=== PATIENT | male | born 1935 | race Caucasian/White ===

== ENCOUNTER → 2018-06-14 | Outpatient (CLI) | payer MEDICARE | LOC: M SMT 09:34 | DX: J84.89 Other specified interstitial pulmonary diseases (principal) | CPT/HCPCS: 71046 ==

== ENCOUNTER → 2018-06-28 | Outpatient (CLI) | payer MEDICARE ==
[2018-06-28 11:14] LABS: ALBUMIN 3.9 GM/DL (3.2-5.2); ALBUMIN/GLOBULIN RATIO 1.22 (1.00-1.93); ALKALINE PHOSPHATASE 38 U/L (45-117); ALT/SGPT 55 U/L (12-78); ANION GAP 7 MEQ/L (8-16); AST/SGOT 35 U/L (7-37); BILIRUBIN,TOTAL 0.7 MG/DL (0.2-1.0); BLOOD UREA NITROGEN 27 MG/DL (7-18); CALCIUM LEVEL 9.2 MG/DL (8.8-10.2); CARBON DIOXIDE LEVEL 30 MEQ/L (21-32); CHLORIDE LEVEL 101 MEQ/L (98-107); CHOLESTEROL LEVEL 124 MG/DL (<200); CHOLESTEROL RISK RATIO 2.755 (<5); CREATININE FOR GFR 1.07 MG/DL (0.70-1.30); GLOMERULAR FILTRATION RATE > 60.0 (>35); GLUCOSE, FASTING 114 MG/DL (70-100); HDL CHOLESTEROL 45 MG/DL (>40); LDL CHOLESTEROL 53.4 MG/DL (<100); MAGNESIUM LEVEL 2.4 MG/DL (1.8-2.4); NON-HDL-C 79 MG/DL; SODIUM LEVEL 138 MEQ/L (136-145); TOTAL PROTEIN 7.1 GM/DL (6.4-8.2); TRIGLYCERIDES LEVEL 128 MG/DL (<150)
== END ==
LOC: M SMT 09:03
DX: I11.9 Hypertensive heart disease without heart failure (principal); R60.0 Localized edema; R94.31 Abnormal electrocardiogram [ECG] [EKG]; Z68.41 Body mass index [BMI] 40.0-44.9, adult
CPT/HCPCS: 83735

== ENCOUNTER → 2018-08-15 | Outpatient (REF) | payer MEDICARE | LOC: M LAB REF 21:51 | DX: R19.7 Diarrhea, unspecified (principal) | CPT/HCPCS: 87507 ==

== ENCOUNTER → 2018-08-26 | Outpatient (CLI) | payer MEDICARE ==
[2018-08-26 14:12] LABS: EOS # 0.2 10^3/uL (0.0-0.50); EOS % 3.2 % (0.0-3.0); HEMATOCRIT 36.9 % (42.0-52.0); HEMOGLOBIN 12.8 g/dl (13.5-17.5); IMMATURE GRANULOCYTE % 0.2 % (0-3.0); LYMPH % 22.4 % (24.0-44.0); MEAN CORPUSCULAR HEMOGLOBIN 31.6 pg (27.0-33.0); MEAN CORPUSCULAR HGB CONC 34.7 g/dl (32.0-36.5); MEAN CORPUSCULAR VOLUME 91.1 fl (80.0-96.0); MONO # 0.7 10^3/uL (0.0-0.8); MONO % 15.7 % (0.0-5.0); NEUTROPHILS # 2.7 10^3/uL (1.8-7.7); NEUTROPHILS % 58.5 % (36.0-66.0); PLATELET COUNT, AUTOMATED 270 10^3/uL (150-450); RED BLOOD COUNT 4.05 10^6/uL (4.30-6.10); WHITE BLOOD COUNT 4.7 10^3/uL (4.0-10.0)
[2018-08-26 14:47] LABS: ALBUMIN 3.2 GM/DL (3.2-5.2); ALBUMIN/GLOBULIN RATIO 1.03 (1.00-1.93); ALKALINE PHOSPHATASE 41 U/L (45-117); ALT/SGPT 44 U/L (12-78); ANION GAP 10 MEQ/L (8-16); AST/SGOT 38 U/L (7-37); BLOOD UREA NITROGEN 16 MG/DL (7-18); CALCIUM LEVEL 8.4 MG/DL (8.8-10.2); CARBON DIOXIDE LEVEL 29 MEQ/L (21-32); CHLORIDE LEVEL 101 MEQ/L (98-107); CREATININE FOR GFR 1.03 MG/DL (0.70-1.30); GLOMERULAR FILTRATION RATE > 60.0 (>35); GLUCOSE, FASTING 95 MG/DL (70-100); POTASSIUM SERUM 2.3 MEQ/L (3.5-5.1); SODIUM LEVEL 140 MEQ/L (136-145); TOTAL PROTEIN 6.3 GM/DL (6.4-8.2)
[2018-08-28 00:06] LABS: DEAMIDATED GLIADIN ABS, IgA 2 units (0-19); DEAMIDATED GLIADIN ABS, IgG 2 units (0-19); ENDOMYSIAL ANTIBODY IgA Negative (Negative); IMMUNOGLOBULIN A 147 mg/dL (61-437); t-TRANSGLUTAMINASE(tTG) IgA <2 U/mL (0-3); t-TRANSGLUTAMINASE(tTG) IgG <2 U/mL (0-5)
== END ==
LOC: M SMT 09:33
DX: R19.7 Diarrhea, unspecified (principal)
CPT/HCPCS: 84443

== ENCOUNTER → 2018-09-08 | Outpatient (CLI) | payer MEDICARE ==
[2018-09-08 13:54] LABS: ALBUMIN 3.6 GM/DL (3.2-5.2); ANION GAP 8 MEQ/L (8-16); BLOOD UREA NITROGEN 17 MG/DL (7-18); CARBON DIOXIDE LEVEL 25 MEQ/L (21-32); CHLORIDE LEVEL 107 MEQ/L (98-107); CREATININE FOR GFR 0.97 MG/DL (0.70-1.30); GLOMERULAR FILTRATION RATE > 60.0 (>35); GLUCOSE, FASTING 77 MG/DL (70-100); MAGNESIUM LEVEL 1.7 MG/DL (1.8-2.4); PHOSPHORUS LEVEL 2.5 MG/DL (2.5-4.9); POTASSIUM SERUM 4.5 MEQ/L (3.5-5.1); SODIUM LEVEL 140 MEQ/L (136-145)
== END ==
LOC: M SMT 09:43
DX: E87.6 Hypokalemia (principal)

== ENCOUNTER → 2018-09-08 | Outpatient (CLI) | payer MEDICARE | LOC: M SMT 09:48 | DX: J44.9 Chronic obstructive pulmonary disease, unspecified (principal); E87.6 Hypokalemia | CPT/HCPCS: 83735 ==

== ENCOUNTER → 2018-10-20 | Outpatient (CLI) | payer MEDICARE ==
[2018-10-20 18:25] LABS: ALBUMIN 3.5 GM/DL (3.2-5.2); ANION GAP 7 MEQ/L (8-16); BLOOD UREA NITROGEN 19 MG/DL (7-18); CARBON DIOXIDE LEVEL 28 MEQ/L (21-32); CHLORIDE LEVEL 104 MEQ/L (98-107); CREATININE FOR GFR 0.81 MG/DL (0.70-1.30); GLOMERULAR FILTRATION RATE > 60.0 (>35); GLUCOSE, FASTING 87 MG/DL (70-100); MAGNESIUM LEVEL 2.1 MG/DL (1.8-2.4); PHOSPHORUS LEVEL 3.6 MG/DL (2.5-4.9); POTASSIUM SERUM 4.5 MEQ/L (3.5-5.1); SODIUM LEVEL 139 MEQ/L (136-145)
== END ==
LOC: M SMT 15:18
DX: E87.6 Hypokalemia (principal); R94.31 Abnormal electrocardiogram [ECG] [EKG]; I11.9 Hypertensive heart disease without heart failure; E83.42 Hypomagnesemia
CPT/HCPCS: 83735

== ENCOUNTER → 2019-05-23 | Outpatient (CLI) | payer MEDICARE ==
[2019-05-23 13:25] LABS: HEMATOCRIT 39.1 % (42.0-52.0); HEMOGLOBIN 13.1 g/dl (13.5-17.5); MEAN CORPUSCULAR HEMOGLOBIN 32.1 pg (27.0-33.0); MEAN CORPUSCULAR HGB CONC 33.5 g/dl (32.0-36.5); MEAN CORPUSCULAR VOLUME 95.8 fl (80.0-96.0); PLATELET COUNT, AUTOMATED 209 10^3/uL (150-450); RED BLOOD COUNT 4.08 10^6/uL (4.30-6.10); WHITE BLOOD COUNT 5.7 10^3/uL (4.0-10.0)
[2019-05-23 13:39] LABS: ALBUMIN 3.6 GM/DL (3.2-5.2); ALT/SGPT 67 U/L (12-78); BILIRUBIN,TOTAL 0.5 MG/DL (0.2-1.0); BLOOD UREA NITROGEN 21 MG/DL (7-18); CALCIUM LEVEL 8.9 MG/DL (8.8-10.2); CARBON DIOXIDE LEVEL 27 MEQ/L (21-32); CHLORIDE LEVEL 107 MEQ/L (98-107); CREATININE FOR GFR 0.91 MG/DL (0.70-1.30); GLOMERULAR FILTRATION RATE > 60.0 (>35); GLUCOSE, FASTING 93 MG/DL (70-100); POTASSIUM SERUM 3.9 MEQ/L (3.5-5.1); SODIUM LEVEL 139 MEQ/L (136-145); TOTAL PROTEIN 6.7 GM/DL (6.4-8.2)
== END ==
LOC: M SMT 08:39
PROVIDERS: ATTEND Internal Medicine
DX: Z51.81 Encounter for therapeutic drug level monitoring (principal); Z79.899 Other long term (current) drug therapy; I10 Essential (primary) hypertension; E78.00 Pure hypercholesterolemia, unspecified

== ENCOUNTER → 2019-05-23 | Outpatient (REF) | payer MEDICARE ==
[2019-05-23 15:03] LABS: CLOSTRIDIUM DIFFICILE PCR NEGATIVE (NEGATIVE)
== END ==
LOC: M LAB REF 12:58
DX: Z79.899 Other long term (current) drug therapy (principal); R19.7 Diarrhea, unspecified; I10 Essential (primary) hypertension

== ENCOUNTER → 2020-09-11 | Outpatient (CLI) | payer MEDICARE ==
[2020-09-11 13:55] LABS: HEMATOCRIT 41.7 % (42.0-52.0); HEMOGLOBIN 13.5 g/dl (13.5-17.5); MEAN CORPUSCULAR HGB CONC 32.4 g/dl (32.0-36.5); MEAN CORPUSCULAR VOLUME 95.9 fl (80.0-96.0); PLATELET COUNT, AUTOMATED 197 10^3/uL (150-450); RED BLOOD COUNT 4.35 10^6/uL (4.30-6.10); WHITE BLOOD COUNT 6.5 10^3/uL (4.0-10.0)
[2020-09-11 14:02] LABS: ALBUMIN 3.8 GM/DL (3.2-5.2); ALT/SGPT 40 U/L (12-78); BILIRUBIN,TOTAL 0.6 MG/DL (0.2-1.0); BLOOD UREA NITROGEN 21 MG/DL (7-18); CALCIUM LEVEL 9.4 MG/DL (8.8-10.2); CARBON DIOXIDE LEVEL 27 MEQ/L (21-32); CHLORIDE LEVEL 106 MEQ/L (98-107); CHOLESTEROL LEVEL 144 MG/DL (<200); CREATININE FOR GFR 0.92 MG/DL (0.70-1.30); GLOMERULAR FILTRATION RATE > 60.0 (>35); GLUCOSE, FASTING 104 MG/DL (70-100); HDL CHOLESTEROL 50 MG/DL (>40); LDL CHOLESTEROL 79 MG/DL (<100); NON-HDL-C 94 MG/DL; POTASSIUM SERUM 4.3 MEQ/L (3.5-5.1); SODIUM LEVEL 137 MEQ/L (136-145); TOTAL PROTEIN 6.8 GM/DL (6.4-8.2); TRIGLYCERIDES LEVEL 77 MG/DL (<150)
[2020-09-11 14:30] LABS: HEMOGLOBIN A1c 5.6 %
== END ==
LOC: M PLALAB 10:53
PROVIDERS: ATTEND Internal Medicine
DX: E66.9 Obesity, unspecified (principal); Z79.899 Other long term (current) drug therapy

== ENCOUNTER → 2021-02-06 | Outpatient (CLI) | payer SELFPAY | LOC: M LABSMTC 11:05 | PROVIDERS: ATTEND Pediatrics | DX: Z11.52 Encounter for screening for COVID-19 (principal) ==

== ENCOUNTER 2021-09-09 20:03 | Observation (INO) | payer MEDICARE ==
[~2021-09-09] VITALS: Ht 170.2 cm; Wt 105.7 kg
[2021-09-09] MEDS ORDERED: LIDOCAINE W/EPINEPHRINE 1% 20ML VIAL SC ONE (21:10)
--- NOTE | 2021-09-09 21:17 | REPVR ---
PROCEDURE INFORMATION: Exam: CT Head Without Contrast Exam date and time: 09/09/2021 8:37 PM Age: 85 years old Clinical indication: Injury or trauma; Fall; Blunt trauma (contusions or hematomas); Additional info: Fall, head injury TECHNIQUE: Imaging protocol: Computed tomography of the head without contrast. Radiation optimization: All CT scans at this facility use at least one of these dose optimization techniques: automated exposure control; mA and/or kV adjustment per patient size (includes targeted exams where dose is matched to clinical indication); or iterative reconstruction. COMPARISON: No relevant prior studies available. FINDINGS: Brain: There is moderate age related parenchymal volume loss. White matter changes are demonstrated in the subcortical, centrum semiovale and periventricular white matter consistent with chronic age related small vessel ischemic changes. There is mild diffuse cerebellar atrophy. Cerebral ventricles: The degree of ventricular dilatation is normal for age and/or degree of atrophy present. Paranasal sinuses: Visualized sinuses are unremarkable. No fluid levels. Mastoid air cells: Visualized mastoid air cells are well aerated. Bones/joints: Unremarkable. No acute fracture. Soft tissues: Large right parietal soft tissue hematoma. IMPRESSION: 1. Large right parietal soft tissue hematoma. No skull fracture. 2. There is moderate age related parenchymal volume loss. White matter changes are demonstrated in the subcortical, centrum semiovale and periventricular white matter consistent with chronic age related small vessel ischemic changes. 3. The degree of ventricular dilatation is normal for age and/or degree of atrophy present. 4. There is mild diffuse cerebellar atrophy. 5. No acute intracranial findings. Electronically signed by: Stuart Morales On 09/09/2021 21:16:32 PM
[2021-09-09 21:21] LABS: BASO % 0.2 % (0.0-1.0); EOS # 0.1 10^3/uL (0.0-0.5); EOS % 1.1 % (0.0-3.0); HEMOGLOBIN 12.9 g/dl (13.5-17.5); LYMPH % 11.1 % (24.0-44.0); MEAN CORPUSCULAR HEMOGLOBIN 32.1 pg (27.0-33.0); MEAN CORPUSCULAR HGB CONC 33.1 g/dl (32.0-36.5); MONO # 0.8 10^3/uL (0.0-0.8); MONO % 9.1 % (2.0-8.0); NEUTROPHILS # 7.1 10^3/uL (1.5-8.5); NEUTROPHILS % 78.1 % (36.0-66.0); PLATELET COUNT, AUTOMATED 229 10^3/uL (150-450); RED BLOOD COUNT 4.02 10^6/uL (4.30-6.10); WHITE BLOOD COUNT 9.1 10^3/uL (4.0-10.0)
--- NOTE | 2021-09-09 21:21 | REPVR ---
PROCEDURE INFORMATION: Exam: CT Cervical Spine Without Contrast Exam date and time: 09/09/2021 8:37 PM Age: 85 years old Clinical indication: Injury or trauma; Fall; Blunt trauma; Additional info: Fall, head injury TECHNIQUE: Imaging protocol: Computed tomography images of the cervical spine without contrast. Radiation optimization: All CT scans at this facility use at least one of these dose optimization techniques: automated exposure control; mA and/or kV adjustment per patient size (includes targeted exams where dose is matched to clinical indication); or iterative reconstruction. COMPARISON: CR CHEST 2 VIEWS 09/08/2018 10:12 AM FINDINGS: Bones/joints: Mild anterolisthesis of C4 on C5. Disc space narrowing at C3-C4, C5-C6 and C6-C7 with intervertebral osteophytes. Levoscoliosis. Discs/Spinal canal/Neural foramina: There are degenerative changes demonstrated in the atlantoaxial joint at C1-C2 with osteophytes and joint space narrowing. The transverse ligament is thickened. Moderate bilateral foraminal stenosis at C3, severe foraminal stenosis on the right and moderate foraminal stenosis on the left at C4, bilateral moderate to severe foraminal stenosis at C5 and C6, changes secondary to osteophytic encroachment. Multilevel disc osteophyte complexes result in varying degrees of effacement of the ventral subarachnoid space with mild cord impingement at C2-C3, mild to moderate cord impingement at C5-C6 and mild cord impingement at C6-C7. Lungs: Lung apices are normal. Soft tissues: See "Discs/Spinal canal/Neural foramina" finding. IMPRESSION: Degenerative spondylosis. No acute findings. Electronically signed by: Stuart Morales On 09/09/2021 21:20:37 PM
[2021-09-09 21:33] LABS: INR 1.03; PARTIAL THROMBOPLASTIN TIME 28.5 SECONDS (25.9-37.0); PROTHROMBIN TIME 13.9 SECONDS (12.7-14.5)
[2021-09-09] MEDS ORDERED: MORPHINE 4 MG/ML 1ML VIAL/SYRINGE (J2270) IV PRN (21:35)
[2021-09-09] MEDS ORDERED: ONDANSETRON 4MG/2ML VIAL IV ONE (21:35)
[2021-09-09] MEDS ORDERED: propofoL 200 MG/20 ML VIAL IV.PROC PRN (21:45)
[2021-09-09] MEDS ORDERED: KETAMINE HCL 200 MG/20 ML VIAL IV ONE (21:45)
[2021-09-09] MEDS ORDERED: NS 1,000 ML IV SCH (21:45)
--- NOTE | 2021-09-09 21:47 | REPVR ---
PROCEDURE INFORMATION: Exam: XR Right Shoulder Exam date and time: 09/09/2021 8:45 PM Age: 85 years old Clinical indication: Pain; Shoulder; Right; Additional info: Shoulder pain after a fall TECHNIQUE: Imaging protocol: XR Right shoulder. Views: 2 or more views. COMPARISON: CR CHEST 2 VIEWS 09/08/2018 10:12 AM FINDINGS: Bones/joints: Findings consistent with an anterior shoulder dislocation. Osteoporosis. Soft tissues: Normal. IMPRESSION: Findings consistent with an anterior shoulder dislocation. Electronically signed by: Stuart Morales On 09/09/2021 21:47:10 PM
[2021-09-09 21:48] LABS: BLOOD UREA NITROGEN 19 MG/DL (7-18); CALCIUM LEVEL 9.3 MG/DL (8.8-10.2); CARBON DIOXIDE LEVEL 27 MEQ/L (21-32); CHLORIDE LEVEL 104 MEQ/L (98-107); CREATININE FOR GFR 0.83 MG/DL (0.70-1.30); GLOMERULAR FILTRATION RATE > 60.0 (>35); GLUCOSE, FASTING 107 MG/DL (70-100); POTASSIUM SERUM 5.1 MEQ/L (3.5-5.1); SODIUM LEVEL 136 MEQ/L (136-145)
[2021-09-09 22:10] LABS: RSV AMPLIFICATION NEGATIVE (NEGATIVE)
--- NOTE | 2021-09-10 00:41 | REPVR ---
PROCEDURE INFORMATION: Exam: XR Right Shoulder Exam date and time: 09/09/2021 11:16 PM Age: 85 years old Clinical indication: Condition or disease; Other: Dislocation reduction; Additional info: Shoulder reset TECHNIQUE: Imaging protocol: XR Right shoulder. Views: 1 view. COMPARISON: CR Shoulder, complete RIGHT 09/09/2021 8:30 PM FINDINGS: Bones/joints: No displaced fracture. Normal alignment. Soft tissues: Normal. IMPRESSION: Normal glenohumeral alignment following reduction. Electronically signed by: Bert Ferrell On 09/10/2021 00:40:47 AM
[2021-09-10] MEDS ORDERED: ATOR40TA75 PO (01:14)
[2021-09-10] MEDS ORDERED: OXYB5TAB10 PO (01:14)
[2021-09-10] MEDS ORDERED: RA K500C PO (01:14)
[2021-09-10] MEDS ORDERED: FAMO20TA PO (01:14)
[2021-09-10] MEDS ORDERED: VITMTA PO (01:14)
[2021-09-10] MEDS ORDERED: OXYB15TA14 PO (01:14)
[2021-09-10] MEDS ORDERED: LOSA50TA88 PO (01:14)
[2021-09-10] MEDS ORDERED: LOSA25TA14 PO (01:14)
[2021-09-10] MEDS ORDERED: D31000TA2 PO (01:14)
[2021-09-10] MEDS ORDERED: HOME MED LIST COMPLETE! XX SCH (01:15)
[2021-09-10] MEDS ORDERED: ACETAMINOPHEN TAB 650MG DOSE (2X325MG) PO PRN (02:00)
[2021-09-10] MEDS ORDERED: PERCOCET 5MG/325MG TAB PO PRN ×2 (02:00)
[2021-09-10] MEDS ORDERED: RAMELTEON 8 MG TAB (ROZEREM) PO PRN (02:00)
[2021-09-10] MEDS ORDERED: MAALOX 30 ML SUSP *UDC PO PRN (02:00)
[2021-09-10] MEDS ORDERED: MOM 30ML SUSPENSION UDC PO PRN (02:00)
--- NOTE | 2021-09-10 02:04 | HPEPDOC ---
[facility] Medical History & Physical Date of Admission Sep 10, 2021 Date of Service: Sep 10, 2021 Attending Physician: GAGANDEEP ROCK MD History and Physical CHIEF COMPLAINT: [85 y/o male presents after a fall] HISTORY OF PRESENT ILLNESS: [This is an 85 y/o male with a pmh of htn, gerd and bph who presents to our ED via ems after he suffered a fall at home. Patient ambulates with cane at baseline. Patient tells me that he was simply trying to get to his bathroom tonight when he happened to slip and fall while trying to use his cane. Patient tells me that he was not dizzy before the fall and denies any chest pain or palpitations prior to the event. Patient tells me he did not pass out. Patient, as of my exam, tells me that his only complaint is of pain in his right shoulder and otherwise feels pretty good. Patient, at the time of my exam, denies any headache, weakness, paresthesias, paralysis, recent illness, fevers, chills, chest pain, palpitations, sob, cough, abd pain, n/v/d/c, pedal edema. Patient found to have large scalp laceration on the right side of his head and dislocated right shoulder upon workup in the ED.] PAST MEDICAL HISTORY: 1. [See HPI PAST SURGICAL HISTORY: 1. [Unpsec. prostate procedure SOCIAL HISTORY: Pt lives alone, ambulates with cane. Tobacco use:[Smoker] ETOH: [Occasional] Illicit drug use: [Denies] FAMILY HISTORY: Reviewed - none pertinent ALLERGIES: Please see below. REVIEW OF SYSTEMS: CONSTITUTIONAL: [Denies fevers, chills]. HEENT: [Denies uri sx]. CARDIOVASCULAR: [Denies chest pain, palpitations]. RESPIRATORY: [Denies sob, wheezing]. GASTROINTESTINAL: [Denies abd pain, n/v/d/c]. GENITOURINARY: [Denies dysuria]. SKIN: [Denies rash]. MUSCULOSKELETAL: [C/o right shoulder pain. Denies acute back pain]. ENDOCRINE: [Denies hx of DM]. HEMATOLOGIC/LYMPHATIC: [Denies hx of vte]. HOME MEDICATIONS: Please see below. PHYSICAL EXAMINATION: VITAL SIGNS: Please see below. GENERAL APPEARANCE: [This is a pleasant 85 y/o male who is alert and oriented to all questioning. He does not appear to be in any acute distress]. HEENT: [Large gauze head bandage in place and clean, dry. No other mass or lesion noticed. No oliver sign or periorbital ecchymosis. No scleral icterus. Nares patent. Oral mucosa moist.]. CARDIOVASCULAR: [Regular rate, rhythm. No murmurs, rubs, gallops]. LUNGS: [Good air flow b/l. No wheezing, rales, rhonchi]. ABDOMEN: [Soft, nontender]. MUSCULOSKELETAL: [Right arm is in a sling and ROM is not assessed. No joint deformity noted]. EXTREMITIES: [No pedal edema. No overlying skin changes. Pulses intact]. NEUROLOGICAL: [Sensation intact. Patient moves extremities freely. Speech clear. A+Ox3. No focal deficit]. PSYCHIATRIC: [Mood and affect appear appropriate]. LABORATORY DATA: See below. IMAGING: [Cervical Spine CT: FINDINGS: Bones/joints: Mild anterolisthesis of C4 on C5. Disc space narrowing at C3-C4, C5-C6 and C6-C7 with intervertebral osteophytes. Levoscoliosis. Discs/Spinal canal/Neural foramina: There are degenerative changes demonstrated in the atlantoaxial joint at C1-C2 with osteophytes and joint space narrowing. The transverse ligament is thickened. Moderate bilateral foraminal stenosis at C3, severe foraminal stenosis on the right and moderate foraminal stenosis on the left at C4, bilateral moderate to severe foraminal stenosis at C5 and C6, changes secondary to osteophytic encroachment. Multilevel disc osteophyte complexes result in varying degrees of effacement of the ventral subarachnoid space with mild cord impingement at C2-C3, mild to moderate cord impingement at C5-C6 and mild cord impingement at C6-C7. Lungs: Lung apices are normal. Soft tissues: See "Discs/Spinal canal/Neural foramina" finding. IMPRESSION: Degenerative spondylosis. No acute findings. Head CT: FINDINGS: Brain: There is moderate age related parenchymal volume loss. White matter changes are demonstrated in the subcortical, centrum semiovale and periventricular white matter consistent with chronic age related small vessel ischemic changes. There is mild diffuse cerebellar atrophy. Cerebral ventricles: The degree of ventricular dilatation is normal for age and/or degree of atrophy present. Paranasal sinuses: Visualized sinuses are unremarkable. No fluid levels. Mastoid air cells: Visualized mastoid air cells are well aerated. Bones/joints: Unremarkable. No acute fracture. Soft tissues: Large right parietal soft tissue hematoma. IMPRESSION: 1. Large right parietal soft tissue hematoma. No skull fracture. 2. There is moderate age related parenchymal volume loss. White matter changes are demonstrated in the subcortical, centrum semiovale and periventricular white matter consistent with chronic age related small vessel ischemic changes. 3. The degree of ventricular dilatation is normal for age and/or degree of atrophy present. 4. There is mild diffuse cerebellar atrophy. 5. No acute intracranial findings. Shoulder XR: FINDINGS: Bones/joints: Findings consistent with an anterior shoulder dislocation. Osteoporosis. Soft tissues: Normal. IMPRESSION: Findings consistent with an anterior shoulder dislocation. #2 Shoulder XR: FINDINGS: Bones/joints: No displaced fracture. Normal alignment. Soft tissues: Normal. IMPRESSION: Normal glenohumeral alignment following reduction. ] MICROBIOLOGY: Please see below. ASSESSMENT: [This is an 85 y/o male with a pmh of htn, gerd and bph who presents to our ED via ems after he suffered a fall at home. Patient ambulates with cane at baseline. Patient found to have large scalp laceration on the right side of his head and dislocated right shoulder upon workup in the ED]. . PLAN: 1. [Mechanical fall - Patient unfortunately suffered shoulder dislocation and large scalp lac. At this time, recommending patient stay for pt/ot evaluation as patient may find it difficult to walk with a cane with his injured shoulder. - PT/OT consult placed - CT head negative for acute changes, will monitor pt mental status - Pt will need scalp sutures removed in 7-10 days - percocet for pain - admit to med surg under obs for pt/ot eval 2. HTN - continue losartan 3. BPH - continue oxybutynin 4. GERD - continue pepcid 5. HLD - continue atorvastatin DVT prophylaxis - mechanical]. Vital Signs Vital Signs Date Time Temp Pulse Resp B/P (MAP) Pulse Ox O2 Delivery O2 Flow Rate FiO2 09/10/21 01:50 70 16 100 Nasal Cannula 2.0 09/10/21 01:45 123/70 (87) 09/09/21 20:12 96.8 Laboratory Data Labs 24H Laboratory Tests 2 09/09/21 20:47: Immature Granulocyte % (Auto) 0.4, Neutrophils (%) (Auto) 78.1H, Lymphocytes (%) (Auto) 11.1L, Monocytes (%) (Auto) 9.1H, Eosinophils (%) (Auto) 1.1, Basophils (%) (Auto) 0.2, Neutrophils # (Auto) 7.1, Lymphocytes # (Auto) 1.0L, Monocytes # (Auto) 0.8, Eosinophils # (Auto) 0.1, Basophils # (Auto) 0.0, Nucleated Red Blood Cells % (auto) 0.0, Prothrombin Time 13.9, Prothromb Time International Ratio 1.03, Activated Partial Thromboplast Time 28.5, Anion Gap 5L, Glomerular Filtration Rate > 60.0, Calcium Level 9.3 09/09/21 20:52: Coronavirus (COVID-19)(PCR) NEGATIVE, Influenza Type A (RT-PCR) NEGATIVE, Influenza Type B (RT-PCR) NEGATIVE, Respiratory Syncytial Virus (PCR) NEGATIVE CBC/BMP Laboratory Tests 09/09/21 20:47 Home Medications Scheduled Atorvastatin Calcium (Atorvastatin Calcium) 40 Mg Tablet, 40 MG PO QHS Cholecalciferol (Vitamin D3) (Vitamin D3) 1,000 Unit Tablet, 1,000 UNITS PO DAILY Famotidine (Famotidine) 20 Mg Tablet, 20 MG PO BID Krill Oil (Krill Oil) 500 Mg Capsule, 500 MG PO DAILY Losartan Potassium (Losartan Potassium) 25 Mg Tablet, 25 MG PO QHS TAKES WITH 50MG FOR 75MG TOTAL Losartan Potassium (Losartan Potassium) 50 Mg Tablet, 50 MG PO QHS TAKES WITH 25MG FOR 75MG TOTAL Multivitamins (Thera M Plus Tablet) 1 Each Tablet, 1 TAB PO DAILY Oxybutynin Chloride (Oxybutynin Chloride) 5 Mg Tablet, 5 MG PO QHS Oxybutynin Chloride (Oxybutynin Chloride ER) 15 Mg Tab.er.24, 15 MG PO DAILY Allergies Coded Allergies: No Known Allergies (Unverified , 09/09/21) A-FIB/CHADSVASC A-FIB History Current/History of A-Fib/PAF?: No LANNY LOYA Sep 10, 2021 02:04
[2021-09-10] MEDS: oxyBUTYnin 5 MG TAB PO SCH ×2 (04:21→21:34)
[2021-09-10] MEDS: LOSARTAN 50MG TABLET PO SCH ×2 (04:21→21:00)
[2021-09-10] MEDS: LOSARTAN 25 MG TAB PO SCH ×2 (04:21→21:00)
[2021-09-10] MEDS: ATORVASTATIN 20 MG TAB PO SCH ×2 (04:21→21:34)
[2021-09-10 06:00] VITALS: BP 142/85
[2021-09-10] MEDS: FAMOTIDINE 20 MG TAB PO SCH ×2 (09:19→21:34)
[2021-09-10 14:00] VITALS: BP 100/59
--- NOTE | 2021-09-10 14:59 | IPNPDOC ---
Text Note Date of Service The patient was seen on 09/10/21. NOTE S: Patient seen and evaluated at bedside this a.m. He tells me he is feeling very well and has no pain in right upper extremity or head. He is anxiously waiting for physical therapy to begin working on improving mobilization and strength of his right upper extremity. Reports bloating, acid reflux. Reports adequate urine output, minimal flatus. Denies chest pain, palpitations, shortness of breath, abdominal pain, nausea vomiting. Denies changes in sensation, changes in vision. O: GEN: Alert, awake, laying in bed eating breakfast, NAD HEENT: Gauze dressing wrapped around crown of patient's head clean, intact, unsaturated, without surrounding skin changes. EOMI, nares patent, moist mucous membranes CARDIO: RRR, normal heart sounds, 5/6 murmur, no rubs/gallops PULM: CTA b/l, no WRR, no accessory muscles used ABD: soft, nontender, nondistended, normal BS EXTREMITIES: Limited ROM right upper extremity secondary to recent right s houlder relocation, no edema, normal ROM in 3/4 extremities IMAGING: CT spine cervical w/out contrast (09/09) Degenerative spondylosis. No acute findings. Head CT (09/09) 1. Large right parietal soft tissue hematoma. No skull fracture. 2. There is moderate age related parenchymal volume loss. White matter changes are demonstrated in the subcortical, centrum semiovale and periventricular white matter consistent with chronic age related small vessel ischemic changes. 3. The degree of ventricular dilatation is normal for age and/or degree of atrophy present. 4. There is mild diffuse cerebellar atrophy. 5. No acute intracranial findings. Shoulder Xray (09/09) Findings consistent with an anterior shoulder dislocation. Shoulder Xray (09/09) Normal glenohumeral alignment following reduction. A/P: Agop is an 85-year-old male who presented with right shoulder dislocation and large right-sided scalp laceration following mechanical fall at home with right shoulder relocated and scalp laceration sutured, who is stable and optimized for discharge, pending OT clearance. #Right shoulder dislocation, secondary to mechanical fall- stable Continue Percocet for pain as needed Patient seen and evaluated by PT/OT 09/10 Patient is stable and medically optimized for discharge. He will be transferred to ALC status, pending possible discharge 09/11 if cleared by OT Of note, patient uses a cane at baseline for walking and, according to patient, sometimes uses one cane in each hand for stabilization when walking long distances. He slipped and fell when trying to get to his bathroom, despite using his cane at the time. #Right-sided scalp laceration, secondary to mechanical fall stable- stable Patient received scalp sutures 09/09 that will need to be removed in 7 to 10 days Of note, patient denied loss of consciousness, dizziness, weakness, paresthesias/paralysis prior to fall. #HTN Continue losartan #BPH Continue oxybutynin #GERD Continue Pepcid #HLD Continue atorvastatin #DVT Prophylaxis Teds and sequentials DIET: regular ACTIVITY: As tolerated DISPO: - Home, pending OT clearance - Patient notes that he will have 15/06 care available by tomorrow Joi MIRANDA, I+O VSJoi, I+O Laboratory Tests 09/09/21 20:47 Vital Signs Date Time Temp Pulse Resp B/P (MAP) Pulse Ox O2 Delivery O2 Flow Rate FiO2 09/10/21 06:00 97.1 72 19 142/85 (104) 98 Room Air 09/10/21 01:50 2.0 I&O- Last 24 Hours up to 6 AM 09/10/21 06:00 Intake Total 1150 ml Output Total 10 ml Balance 1140 ml GME ATTESTATION GME ATTESTATION My faculty preceptor for this patient encounter was physically present during the encounter and was fully available. All aspects of the patient interview, examination, medical decision making process, and medical care plan development were reviewed and approved by the faculty preceptor. The faculty preceptor is aware and concurs with the plan as stated in the body of this note and will attest to such by his/her cosignature. ATTENDING NOTE I, Ly Gould, have independently examined this patient and performed my own physical exam, as well as reviewed the documentation and edited where necessary with the resident. For medical students we have performed the physical exam together and discussed medical decision making and I have verified the history. I have discussed in detail with the resident / student the findings and plan of treatment as documented by the resident / student and edited their note. I agree with their findings and treatment plan and have edited their documentation. I will continue to follow the patient during this hospital stay. Renetta Oglesby DO Sep 10, 2021 14:59 LY GOULD MD Sep 10, 2021 15:28
[2021-09-10 21:00] VITALS: BP 103/59
[2021-09-10 22:00] VITALS: BP 103/59
[2021-09-11 06:44] LABS: BASO % 0.1 % (0.0-1.0); EOS # 0.2 10^3/uL (0.0-0.5); EOS % 2.4 % (0.0-3.0); HEMATOCRIT 34.4 % (42.0-52.0); HEMOGLOBIN 11.1 g/dl (13.5-17.5); LYMPH # 1.4 10^3/uL (1.5-5.0); LYMPH % 16.5 % (24.0-44.0); MEAN CORPUSCULAR HEMOGLOBIN 32.2 pg (27.0-33.0); MEAN CORPUSCULAR HGB CONC 32.3 g/dl (32.0-36.5); MEAN CORPUSCULAR VOLUME 99.7 fl (80.0-96.0); MONO # 1.3 10^3/uL (0.0-0.8); MONO % 15.3 % (2.0-8.0); NEUTROPHILS # 5.6 10^3/uL (1.5-8.5); NEUTROPHILS % 65.2 % (36.0-66.0); PLATELET COUNT, AUTOMATED 198 10^3/uL (150-450); RED BLOOD COUNT 3.45 10^6/uL (4.30-6.10); WHITE BLOOD COUNT 8.5 10^3/uL (4.0-10.0)
[2021-09-11 07:33] LABS: BLOOD UREA NITROGEN 24 MG/DL (7-18); CALCIUM LEVEL 8.5 MG/DL (8.8-10.2); CARBON DIOXIDE LEVEL 21 MEQ/L (21-32); CHLORIDE LEVEL 107 MEQ/L (98-107); CREATININE FOR GFR 1.06 MG/DL (0.70-1.30); GLOMERULAR FILTRATION RATE > 60.0 (>35); GLUCOSE, FASTING 107 MG/DL (70-100); MAGNESIUM LEVEL 2.1 MG/DL (1.8-2.4); POTASSIUM SERUM 4.1 MEQ/L (3.5-5.1); SODIUM LEVEL 136 MEQ/L (136-145)
[2021-09-11] MEDS: FAMOTIDINE 20 MG TAB PO SCH (09:24)
--- NOTE | 2021-09-11 11:33 | DS.PDOC ---
Discharge Summary General Date of Admission Sep 10, 2021 at 01:59 Date of Discharge 09/11/2021 Attending Physician: LY GOULD MD Discharge Summary PROCEDURES PERFORMED DURING STAY: None ADMITTING DIAGNOSES: 1. Right shoulder dislocation 2. Right scalp laceration DISCHARGE DIAGNOSES: 1. Right shoulder dislocation 2. Right scalp laceration COMPLICATIONS/CHIEF COMPLAINT: Fall / Shoulder and Head pain HISTORY OF PRESENT ILLNESS: Xiomara is an 85 y/o male PMH HTN, GERD, BPH who presents to ED via EMS after he suffered a fall at home. Patient ambulates with cane at baseline, and reports use of 2 canes (1 in each hand) when ambulating longer distances. Patient tells me that he was trying to get to his bathroom tonight when he happened to slip and fall while trying to use his cane. Patient tells me that he was not dizzy before the fall. Denies chest pain, palpitations prior to the event. Patient tells me he did not pass out. Patient's only complaint is of pain in his right shoulder and otherwise feels pretty good. Denies headache, weakness, paresthesias, paralysis, recent illness, fevers, chills, chest pain, palpitations, sob, cough, abd pain, n/v/d/c, pedal edema. Patient found to have large scalp laceration on the right side of his head and dislocated right shoulder upon workup in the ED. HOSPITAL COURSE: Patient was found to have right shoulder dislocation following mechanical fall and was admitted for PT/OT evaluation given patient's dependence on cane for ambulation at baseline. Patient's R shoulder was corrected in the ER. Full work-up in the ED supported mechanical fall. Patient was also found to have a right scalp laceration which required 8 sutures in ED. Patient was seen and evaluated by PT/OT on 09/10. Patient was cleared for PT and recommended home with services. Unfortunately, patient was not initially cleared by OT and they recommended 24/7 care for assistance with ADLs - he required an additional 24 hours before patient was cleared by OT on 09/11, upon reevaluation. Patient's HTN, BPH, GERD, HLD were all monitored and managed without any complications throughout admission. DISCHARGE MEDICATIONS: Please see below. ALLERGIES: Please see below. PHYSICAL EXAMINATION ON DISCHARGE: VITAL SIGNS: Please see below. GENERAL: Alert, awake, sitting in recliner, NAD HEENT: Right scalp laceration with [address]-closed, intact, dried blood overlying sutures, no surrounding skin changes, no pain with overlying pressure. EOMI, nares patent, moist mucous membranes NECK: Supple CARDIOVASCULAR EXAMINATION: Normal heart sounds, 4/6 diastolic murmur, regular rate and rhythm, no rubs/gallops RESPIRATORY EXAMINATION: CTA bilaterally, no wheezing/rales/rhonchi, no accessory muscles used ABDOMINAL EXAMINATION: Soft, nontender, nondistended, normal bowel sounds x4 EXTREMITIES: No significant edema lateral lower extremities, normal ROM with limited abduction right upper extremity secondary to recent relocation of ould joint SKIN: Right scalp laceration w/o surrounding skin changes including redness, warmth, drainage. No new rashes, abrasions, wounds NEUROLOGICAL EXAMINATION: No focal neuro deficits PSYCHIATRIC EXAMINATION: Alert, oriented, no depressed/anxious mood LABORATORY DATA: Please see below. IMAGING: CT spine cervical w/out contrast (09/09) Degenerative spondylosis. No acute findings. Head CT (09/09) 1. Large right parietal soft tissue hematoma. No skull fracture. 2. There is moderate age related parenchymal volume loss. White matter changes are demonstrated in the subcortical, centrum semiovale and periventricular white matter consistent with chronic age related small vessel ischemic changes. 3. The degree of ventricular dilatation is normal for age and/or degree of atrophy present. 4. There is mild diffuse cerebellar atrophy. 5. No acute intracranial findings. Shoulder Xray (09/09) Findings consistent with an anterior shoulder dislocation. Shoulder Xray (09/09) Normal glenohumeral alignment following reduction. PROGNOSIS: Good ACTIVITY: As tolerated DIET: Regular DISCHARGE PLAN: 1. Right shoulder dislocation Continue PT at home, 15/06 care for assistance with ADLs 2. Right scalp laceration Suture removal 7-10days DISPOSITION: Home with services DISCHARGE INSTRUCTIONS: 1. F/U PCP, 7-10 days ITEMS TO FOLLOWUP ON ON OUTPATIENT: 1. PCP-(8) suture removal, F/u right shoulder DISCHARGE CONDITION: Stable TIME SPENT ON DISCHARGE: <30 minutes Vital Signs/I&Os Vital Signs Date Time Temp Pulse Resp B/P (MAP) Pulse Ox O2 Delivery O2 Flow Rate FiO2 09/10/21 22:00 98.0 86 18 103/59 (74) 98 Room Air 09/10/21 01:50 2.0 I&O- Last 24 Hours up to 6 AM 09/11/21 06:00 Intake Total 1400 ml Output Total 250 ml Balance 1150 ml Laboratory Data Labs 24H Laboratory Tests 2 09/11/21 06:15: Immature Granulocyte % (Auto) 0.5, Neutrophils (%) (Auto) 65.2, Lymphocytes (%) (Auto) 16.5L, Monocytes (%) (Auto) 15.3H, Eosinophils (%) (Auto) 2.4, Basophils (%) (Auto) 0.1, Neutrophils # (Auto) 5.6, Lymphocytes # (Auto) 1.4L, Monocytes # (Auto) 1.3H, Eosinophils # (Auto) 0.2, Basophils # (Auto) 0.0, Nucleated Red Blood Cells % (auto) 0.0, Anion Gap 8, Glomerular Filtration Rate > 60.0, Calcium Level 8.5L, Magnesium Level 2.1 CBC/BMP Laboratory Tests 09/11/21 06:15 Discharge Medications Scheduled Atorvastatin Calcium (Atorvastatin Calcium) 40 Mg Tablet, 40 MG PO QHS, (Reported) Cholecalciferol (Vitamin D3) (Vitamin D3) 1,000 Unit Tablet, 1,000 UNITS PO DAILY, (Reported) Famotidine (Famotidine) 20 Mg Tablet, 20 MG PO BID, (Reported) Krill Oil (Krill Oil) 500 Mg Capsule, 500 MG PO DAILY, (Reported) Losartan Potassium (Losartan Potassium) 25 Mg Tablet, 25 MG PO QHS, (Reported) TAKES WITH 50MG FOR 75MG TOTAL Losartan Potassium (Losartan Potassium) 50 Mg Tablet, 50 MG PO QHS, (Reported) TAKES WITH 25MG FOR 75MG TOTAL Multivitamins (Thera M Plus Tablet) 1 Each Tablet, 1 TAB PO DAILY, (Reported) Oxybutynin Chloride (Oxybutynin Chloride) 5 Mg Tablet, 5 MG PO QHS, (Reported) Oxybutynin Chloride (Oxybutynin Chloride ER) 15 Mg Tab.er.24, 15 MG PO DAILY, (Reported) Allergies Coded Allergies: No Known Allergies (Unverified , 09/09/21) GME ATTESTATION GME ATTESTATION My faculty preceptor for this patient encounter was physically present during the encounter and was fully available. All aspects of the patient interview, examination, medical decision making process, and medical care plan development were reviewed and approved by the faculty preceptor. The faculty preceptor is aware and concurs with the plan as stated in the body of this note and will attest to such by his/her cosignature. ATTENDING NOTE I, Ly Gould, have independently examined this patient and performed my own physical exam, as well as reviewed the documentation and edited where necessary with the resident. For medical students we have performed the physical exam together and discussed medical decision making and I have verified the history. I have discussed in detail with the resident / student the findings and plan of treatment as documented by the resident / student and edited their note. I agree with their findings and treatment plan and have edited their documentation. I will continue to follow the patient during this hospital stay. Time spend on discharge 20 minutes Renetta Oglesby DO Sep 11, 2021 11:33 LY GOULD MD Sep 11, 2021 12:08
[2021-09-11 13:20] VITALS: BP 142/86
== END 2021-09-11 14:05 | disposition home health service (06) ==
LOC: M ED 20:03 → M ED INP 09-10 01:59 → ENRESERV 09-10 02:40 → M MS5PR 09-10 03:26
PROVIDERS: ADMIT Internal Medicine; ATTEND Internal Medicine
DX: S43.014A Anterior dislocation of right humerus, initial encounter (principal); S01.01XA Laceration without foreign body of scalp, initial encounter; W01.0XXA Fall on same level from slipping, tripping and stumbling without subsequent striking against object, initial encounter; Y92.098 Other place in other non-institutional residence as the place of occurrence of the external cause; Y93.01 Activity, walking, marching and hiking; Y99.8 Other external cause status; Z99.89 Dependence on other enabling machines and devices; M47.812 Spondylosis without myelopathy or radiculopathy, cervical region; I67.82 Cerebral ischemia; I10 Essential (primary) hypertension; E78.5 Hyperlipidemia, unspecified; N40.0 Benign prostatic hyperplasia without lower urinary tract symptoms; Z79.899 Other long term (current) drug therapy; F17.210 Nicotine dependence, cigarettes, uncomplicated
CPT/HCPCS: 12002; 23650; 36415; 70450; 72125; 73020; 73030; 80048; 83735; 85025; 85610; 85730; 86850; 86900; 86901; 87631; 93041; 94760; 96361; 96374; 96375; 97116; 97161; 97165; 97530; 97535; 99152; 99285; G0378; J2270; J2405

== ENCOUNTER → 2021-12-10 | Outpatient (CLI) | payer MEDICARE ==
[~2021-12-10] MED LIST: ATOR40TA75 PO; D31000TA2 PO; FAMO20TA PO; LOSA25TA13 PO; LOSA50TA28 PO; OXYB15TA14 PO; OXYB5TAB10 PO; RA K500C PO; VITMTA PO
[2021-12-10 17:35] LABS: HEMATOCRIT 40.1 % (42.0-52.0); HEMOGLOBIN 12.9 g/dl (13.5-17.5); MEAN CORPUSCULAR HGB CONC 32.2 g/dl (32.0-36.5); MEAN CORPUSCULAR VOLUME 96.4 fl (80.0-96.0); PLATELET COUNT, AUTOMATED 224 10^3/uL (150-450); RED BLOOD COUNT 4.16 10^6/uL (4.30-6.10); WHITE BLOOD COUNT 8.1 10^3/uL (4.0-10.0)
[2021-12-10 18:00] LABS: BLOOD UREA NITROGEN 22 MG/DL (7-18); CALCIUM LEVEL 10.1 MG/DL (8.8-10.2); CARBON DIOXIDE LEVEL 31 MEQ/L (21-32); CHLORIDE LEVEL 104 MEQ/L (98-107); CREATININE FOR GFR 0.98 MG/DL (0.70-1.30); GLOMERULAR FILTRATION RATE > 60.0 (>35); GLUCOSE, FASTING 103 MG/DL (70-100); MAGNESIUM LEVEL 2.3 MG/DL (1.8-2.4); NT-PRO BNP 59 PG/ML (<450); POTASSIUM SERUM 4.9 MEQ/L (3.5-5.1); SODIUM LEVEL 139 MEQ/L (136-145)
== END ==
LOC: M PLALAB 15:30
PROVIDERS: ATTEND Physician Assistant
DX: I50.32 Chronic diastolic (congestive) heart failure (principal)

== ENCOUNTER → 2021-12-28 | Outpatient (CLI) | payer MEDICARE ==
[2021-12-28 17:07] LABS: BLOOD UREA NITROGEN 38 MG/DL (7-18); CALCIUM LEVEL 9.4 MG/DL (8.8-10.2); CARBON DIOXIDE LEVEL 28 MEQ/L (21-32); CHLORIDE LEVEL 105 MEQ/L (98-107); CREATININE FOR GFR 1.09 MG/DL (0.70-1.30); GLOMERULAR FILTRATION RATE > 60.0 (>35); GLUCOSE, FASTING 94 MG/DL (70-100); NT-PRO BNP 28 PG/ML (<450); POTASSIUM SERUM 4.4 MEQ/L (3.5-5.1); SODIUM LEVEL 140 MEQ/L (136-145)
[2021-12-29 13:22] LABS: MAGNESIUM LEVEL 2.1 MG/DL (1.7-2.2)
== END ==
LOC: M LAB 15:39
PROVIDERS: ATTEND Physician Assistant
DX: I50.32 Chronic diastolic (congestive) heart failure (principal); I49.3 Ventricular premature depolarization

== ENCOUNTER → 2022-01-14 | Outpatient (CLI) | payer MEDICARE ==
[2022-01-14 19:23] LABS: BLOOD UREA NITROGEN 30 MG/DL (7-18); CALCIUM LEVEL 9.4 MG/DL (8.8-10.2); CARBON DIOXIDE LEVEL 29 MEQ/L (21-32); CHLORIDE LEVEL 102 MEQ/L (98-107); CREATININE FOR GFR 1.18 MG/DL (0.70-1.30); GLOMERULAR FILTRATION RATE > 60.0 (>35); GLUCOSE, FASTING 105 MG/DL (70-100); MAGNESIUM LEVEL 2.5 MG/DL (1.8-2.4); POTASSIUM SERUM 4.7 MEQ/L (3.5-5.1); SODIUM LEVEL 139 MEQ/L (136-145)
== END ==
LOC: M WUC 15:39
PROVIDERS: ATTEND Physician Assistant
DX: I50.32 Chronic diastolic (congestive) heart failure (principal); E83.42 Hypomagnesemia

== ENCOUNTER → 2022-05-04 | Outpatient (CLI) | payer MEDICARE ==
[~2022-05-04] MED LIST changes: -D31000TA2 PO; +VITA100093 PO
[2022-05-04 14:48] LABS: BLOOD UREA NITROGEN 24 MG/DL (7-18); CALCIUM LEVEL 9.8 MG/DL (8.8-10.2); CARBON DIOXIDE LEVEL 29 MEQ/L (21-32); CHLORIDE LEVEL 106 MEQ/L (98-107); CREATININE FOR GFR 1.11 MG/DL (0.70-1.30); GLOMERULAR FILTRATION RATE > 60.0 (>35); GLUCOSE, FASTING 113 MG/DL (70-100); POTASSIUM SERUM 4.2 MEQ/L (3.5-5.1); SODIUM LEVEL 141 MEQ/L (136-145)
== END ==
LOC: M LAB 13:22
PROVIDERS: ATTEND Physician Assistant
DX: I50.32 Chronic diastolic (congestive) heart failure (principal)

== ENCOUNTER → 2022-09-10 | Outpatient (CLI) | payer MEDICARE ==
[2022-09-10 14:09] LABS: BLOOD UREA NITROGEN 20 MG/DL (7-18); CALCIUM LEVEL 9.6 MG/DL (8.8-10.2); CARBON DIOXIDE LEVEL 29 MEQ/L (21-32); CHLORIDE LEVEL 103 MEQ/L (98-107); CREATININE FOR GFR 1.05 MG/DL (0.70-1.30); GLOMERULAR FILTRATION RATE > 60.0 (>35); GLUCOSE, FASTING 115 MG/DL (70-100); POTASSIUM SERUM 4.5 MEQ/L (3.5-5.1); SODIUM LEVEL 136 MEQ/L (136-145)
== END ==
LOC: M WUC 09:58
PROVIDERS: ATTEND Physician Assistant
DX: I50.32 Chronic diastolic (congestive) heart failure (principal)

== ENCOUNTER → 2023-02-12 | Outpatient (CLI) | payer MEDICARE ==
[2023-02-12 17:22] LABS: BLOOD UREA NITROGEN 17 MG/DL (9-23); CALCIUM LEVEL 9.6 MG/DL (8.3-10.6); CARBON DIOXIDE LEVEL 26 MMOL/L (20-31); CHLORIDE LEVEL 105 MMOL/L (98-107); CREATININE FOR GFR 0.84 MG/DL (0.70-1.30); GLOMERULAR FILTRATION RATE > 60.0 (>35); GLUCOSE, FASTING 108 MG/DL (74-106); POTASSIUM SERUM 3.6 MMOL/L (3.5-5.1); SODIUM LEVEL 140 MMOL/L (136-145)
== END ==
LOC: M WUC 13:22
PROVIDERS: ATTEND Physician Assistant
DX: I50.32 Chronic diastolic (congestive) heart failure (principal)

== ENCOUNTER → 2023-02-14 | Outpatient (REF) | payer MEDICARE | LOC: M WUC 19:12 | PROVIDERS: ATTEND Student in an Organized Health Care Education/Training Program | DX: R19.7 Diarrhea, unspecified (principal) ==

== ENCOUNTER → 2023-07-12 | Outpatient (CLI) | payer MEDICARE ==
[2023-07-12 14:50] LABS: BLOOD UREA NITROGEN 20 MG/DL (9-23); CARBON DIOXIDE LEVEL 23 MMOL/L (20-31); CHLORIDE LEVEL 109 MMOL/L (98-107); CREATININE FOR GFR 0.88 MG/DL (0.70-1.30); GLOMERULAR FILTRATION RATE > 60.0 (>35); GLUCOSE, FASTING 151 MG/DL (74-106); POTASSIUM SERUM 3.9 MMOL/L (3.5-5.1); SODIUM LEVEL 141 MMOL/L (136-145)
== END ==
LOC: M LAB 13:54
PROVIDERS: ATTEND Physician Assistant
DX: I50.32 Chronic diastolic (congestive) heart failure (principal)

== ENCOUNTER → 2023-07-12 | Outpatient (CLI) | payer MEDICARE ==
[2023-07-12 14:27] LABS: HEMATOCRIT 38.9 % (42.0-52.0); HEMOGLOBIN 13.1 g/dl (13.5-17.5); MEAN CORPUSCULAR HEMOGLOBIN 31.6 pg (27.0-33.0); MEAN CORPUSCULAR HGB CONC 33.7 g/dl (32.0-36.5); PLATELET COUNT, AUTOMATED 199 10^3/uL (150-450); RED BLOOD COUNT 4.14 10^6/uL (4.30-6.10); WHITE BLOOD COUNT 6.8 10^3/uL (4.0-10.0)
[2023-07-12 14:50] LABS: ALBUMIN 3.6 G/DL (3.2-5.2); ALKALINE PHOSPHATASE 40 U/L (46-116); ALT/SGPT 35 U/L (7.0-40); AST/SGOT 23 U/L (<34); BILIRUBIN,TOTAL 0.5 MG/DL (0.3-1.2); BLOOD UREA NITROGEN 20 MG/DL (9-23); CALCIUM LEVEL 9.3 MG/DL (8.3-10.6); CARBON DIOXIDE LEVEL 23 MMOL/L (20-31); CHLORIDE LEVEL 108 MMOL/L (98-107); CHOLESTEROL LEVEL 117 MG/DL (<200); CHOLESTEROL RISK RATIO 2.99 (<5); CREATININE FOR GFR 0.87 MG/DL (0.70-1.30); GLOMERULAR FILTRATION RATE > 60.0 (>35); GLUCOSE, FASTING 147 MG/DL (74-106); HDL CHOLESTEROL 39.1 MG/DL (>40); LDL CHOLESTEROL 54.3 MG/DL (<100); NON-HDL-C 77.9 MG/DL; POTASSIUM SERUM 3.8 MMOL/L (3.5-5.1); SODIUM LEVEL 141 MMOL/L (136-145); TOTAL PROTEIN 6.4 G/DL (5.7-8.2); TRIGLYCERIDES LEVEL 118 MG/DL (<150)
== END ==
LOC: M LAB 13:56
PROVIDERS: ATTEND Internal Medicine
DX: I10 Essential (primary) hypertension (principal); E66.9 Obesity, unspecified; Z79.899 Other long term (current) drug therapy

== ENCOUNTER → 2023-11-01 | Outpatient (CLI) | payer MEDICARE ==
[~2023-11-01] MED LIST changes: -OXYB5TAB10 PO; +OXYB5TAB11 PO
[2023-11-01 11:36] LABS: ALBUMIN 3.7 G/DL (3.2-5.2); ALKALINE PHOSPHATASE 38 U/L (46-116); ALT/SGPT 31 U/L (7.0-40); AST/SGOT 25 U/L (<34); BILIRUBIN,TOTAL 0.9 MG/DL (0.3-1.2); BLOOD UREA NITROGEN 20 MG/DL (9-23); CALCIUM LEVEL 10.1 MG/DL (8.3-10.6); CARBON DIOXIDE LEVEL 29 MMOL/L (20-31); CHLORIDE LEVEL 105 MMOL/L (98-107); CHOLESTEROL LEVEL 128 MG/DL (<200); CHOLESTEROL RISK RATIO 2.72 (<5); CREATININE FOR GFR 1.05 MG/DL (0.70-1.30); GLOMERULAR FILTRATION RATE > 60.0 (>35); GLUCOSE, FASTING 105 MG/DL (74-106); LDL CHOLESTEROL 66.6 MG/DL (<100); POTASSIUM SERUM 4.7 MMOL/L (3.5-5.1); SODIUM LEVEL 141 MMOL/L (136-145); TOTAL PROTEIN 6.6 G/DL (5.7-8.2); TRIGLYCERIDES LEVEL 72 MG/DL (<150)
== END ==
LOC: M LAB 10:32
PROVIDERS: ATTEND Physician Assistant
DX: I50.32 Chronic diastolic (congestive) heart failure (principal); E78.00 Pure hypercholesterolemia, unspecified; I49.3 Ventricular premature depolarization

== ENCOUNTER → 2024-05-08 | Outpatient (CLI) | payer MEDICARE ==
[~2024-05-08] MED LIST changes: -OXYB5TAB11 PO; +OXYB5TAB14 PO
[2024-05-08 15:21] LABS: CALCIUM LEVEL 10.2 MG/DL (8.3-10.6); CREATININE FOR GFR 1.31 MG/DL (0.70-1.30); POTASSIUM SERUM 4.2 MMOL/L (3.5-5.1)
== END ==
LOC: M LAB 14:26
PROVIDERS: ATTEND Physician Assistant
DX: I50.32 Chronic diastolic (congestive) heart failure (principal)

== ENCOUNTER → 2024-08-01 | Outpatient (CLI) | payer MEDICARE ==
[2024-08-01 19:58] LABS: BLOOD UREA NITROGEN 18 MG/DL (9-23); CALCIUM LEVEL 10.1 MG/DL (8.3-10.6); CARBON DIOXIDE LEVEL 24 MMOL/L (20-31); CHLORIDE LEVEL 108 MMOL/L (98-107); CREATININE FOR GFR 0.91 MG/DL (0.70-1.30); GLOMERULAR FILTRATION RATE > 60.0 (>35); GLUCOSE, FASTING 121 MG/DL (74-106); POTASSIUM SERUM 3.6 MMOL/L (3.5-5.1); SODIUM LEVEL 142 MMOL/L (136-145)
== END ==
LOC: M WUC 15:52
PROVIDERS: ATTEND Physician Assistant
DX: I50.32 Chronic diastolic (congestive) heart failure (principal); I49.3 Ventricular premature depolarization

== ENCOUNTER → 2024-09-25 | Outpatient (CLI) | payer MEDICARE | LOC: M RAD 15:41 | PROVIDERS: ATTEND Student in an Organized Health Care Education/Training Program | DX: J20.9 Acute bronchitis, unspecified (principal); J43.9 Emphysema, unspecified; K44.9 Diaphragmatic hernia without obstruction or gangrene ==

== ENCOUNTER → 2024-11-05 | Outpatient (CLI) | payer MEDICARE ==
[2024-11-05 15:17] LABS: ALBUMIN 3.5 G/DL (3.2-5.2); ALKALINE PHOSPHATASE 48 U/L (40-129); ALT/SGPT 23 U/L (7.0-40); AST/SGOT 25 U/L (<34); BILIRUBIN,TOTAL 0.7 MG/DL (0.3-1.2); BLOOD UREA NITROGEN 29 MG/DL (9-23); CALCIUM LEVEL 10.8 MG/DL (8.3-10.6); CARBON DIOXIDE LEVEL 29 MMOL/L (20-31); CHLORIDE LEVEL 104 MMOL/L (98-107); CHOLESTEROL LEVEL 132 MG/DL (<200); CHOLESTEROL RISK RATIO 3.69 (<5); CREATININE FOR GFR 1.16 MG/DL (0.70-1.30); GLOMERULAR FILTRATION RATE > 60.0 (>35); GLUCOSE, FASTING 93 MG/DL (74-106); HDL CHOLESTEROL 35.7 MG/DL (>40); LDL CHOLESTEROL 71.3 MG/DL (<100); MAGNESIUM LEVEL 2.2 MG/DL (1.8-2.4); NON-HDL-C 96.3 MG/DL; POTASSIUM SERUM 4.4 MMOL/L (3.5-5.1); SODIUM LEVEL 141 MMOL/L (136-145); TOTAL PROTEIN 6.7 G/DL (5.7-8.2); TRIGLYCERIDES LEVEL 125 MG/DL (<150)
== END ==
LOC: M LAB 13:45
PROVIDERS: ATTEND Physician Assistant
DX: I50.32 Chronic diastolic (congestive) heart failure (principal); E78.00 Pure hypercholesterolemia, unspecified; E83.42 Hypomagnesemia

== ENCOUNTER → 2024-11-05 | Outpatient (CLI) | payer MEDICARE ==
[2024-11-05 14:45] LABS: APPEARANCE, URINE HAZY (CLEAR); BACTERIA, URINE AUTO NEGATIVE (NEGATIVE); BILIRUBIN, URINE AUTO NEGATIVE (NEGATIVE); BLOOD, URINE BLOOD NEGATIVE (NEGATIVE); COLOR, URINE YELLOW (YELLOW); GLUCOSE, URINE (UA) AUTO NEGATIVE (NEGATIVE); KETONE, URINE AUTO NEGATIVE (NEGATIVE); LEUKOCYTE ESTERASE, URINE AUTO NEGATIVE (NEGATIVE); NITRITE, URINE AUTO NEGATIVE (NEGATIVE); PROTEIN, URINE AUTO 1+ mg/dL (NEGATIVE); RBC, URINE AUTO 1 /HPF (0-3); SPECIFIC GRAVITY URINE AUTO 1.013 (1.002-1.035); SQUAMOUS EPITHELIAL CELL UR AU 2 /HPF (0-6); WBC, URINE AUTO 0 /HPF (0-3)
[2024-11-05 14:48] LABS: HEMATOCRIT 37.9 % (42.0-52.0); HEMOGLOBIN 12.7 g/dl (13.5-17.5); MEAN CORPUSCULAR HGB CONC 33.5 g/dl (32.0-36.5); MEAN CORPUSCULAR VOLUME 95.5 fl (80.0-96.0); PLATELET COUNT, AUTOMATED 237 10^3/uL (150-450); RED BLOOD COUNT 3.97 10^6/uL (4.30-6.10); WHITE BLOOD COUNT 7.8 10^3/uL (4.0-10.0)
[2024-11-05 15:16] LABS: ALBUMIN 3.4 G/DL (3.2-5.2); ALKALINE PHOSPHATASE 48 U/L (40-129); ALT/SGPT 22 U/L (7.0-40); AST/SGOT 24 U/L (<34); BILIRUBIN,TOTAL 0.8 MG/DL (0.3-1.2); BLOOD UREA NITROGEN 30 MG/DL (9-23); CALCIUM LEVEL 10.6 MG/DL (8.3-10.6); CARBON DIOXIDE LEVEL 29 MMOL/L (20-31); CHLORIDE LEVEL 104 MMOL/L (98-107); CREATININE FOR GFR 1.13 MG/DL (0.70-1.30); GLOMERULAR FILTRATION RATE > 60.0 (>35); GLUCOSE, FASTING 96 MG/DL (74-106); POTASSIUM SERUM 4.5 MMOL/L (3.5-5.1); SODIUM LEVEL 141 MMOL/L (136-145); TOTAL PROTEIN 6.5 G/DL (5.7-8.2)
[2024-11-05 15:23] LABS: HEMOGLOBIN A1c 6.2 % (4.0-6.0)
== END ==
LOC: M LAB 13:43
PROVIDERS: ATTEND Internal Medicine
DX: I10 Essential (primary) hypertension (principal); Z79.899 Other long term (current) drug therapy; R73.03 Prediabetes

== ENCOUNTER → 2025-01-03 | Outpatient (CLI) | payer MEDICARE | LOC: M WUC 15:40 | PROVIDERS: ATTEND Physician Assistant | DX: J06.9 Acute upper respiratory infection, unspecified (principal); R05.9 Cough, unspecified; R06.2 Wheezing ==

== ENCOUNTER → 2025-01-31 | Outpatient (REF) | payer MEDICARE ==
[2025-01-31 18:45] LABS: BLOOD UREA NITROGEN 13 MG/DL (9-23); CALCIUM LEVEL 9.8 MG/DL (8.3-10.6); CARBON DIOXIDE LEVEL 26 MMOL/L (20-31); CHLORIDE LEVEL 106 MMOL/L (98-107); CREATININE FOR GFR 0.94 MG/DL (0.70-1.30); GLOMERULAR FILTRATION RATE > 60.0 (>35); GLUCOSE, FASTING 88 MG/DL (74-106); POTASSIUM SERUM 4.4 MMOL/L (3.5-5.1); SODIUM LEVEL 143 MMOL/L (136-145)
== END ==
LOC: M LABWUC 16:46
PROVIDERS: ATTEND Physician Assistant
DX: I50.32 Chronic diastolic (congestive) heart failure (principal)

== ENCOUNTER → 2025-08-03 | Outpatient (CLI) | payer MEDICARE | LOC: M EKG 14:42 | PROVIDERS: ATTEND Physician Assistant | DX: R42 Dizziness and giddiness (principal) ==

== ENCOUNTER → 2025-09-17 | Outpatient (CLI) | payer MEDICARE ==
[2025-09-17 16:18] LABS: CALCIUM LEVEL 10.1 MG/DL (8.3-10.6); CARBON DIOXIDE LEVEL 23.0 MMOL/L (20-31); CHLORIDE LEVEL 105.0 MMOL/L (98-107); CREATININE FOR GFR 1.15 MG/DL (0.70-1.30); GLOMERULAR FILTRATION RATE 60.8 (>35); POTASSIUM SERUM 5.2 MMOL/L (3.5-5.1); SODIUM LEVEL 139.0 MMOL/L (136-145)
== END ==
LOC: M LAB 15:05
PROVIDERS: ATTEND Physician Assistant
DX: I50.32 Chronic diastolic (congestive) heart failure (principal)

== ENCOUNTER → 2025-09-22 | Outpatient (CLI) | payer MEDICARE ==
[2025-09-22 18:18] LABS: CALCIUM LEVEL 9.0 MG/DL (8.3-10.6); CARBON DIOXIDE LEVEL 24.0 MMOL/L (20-31); CHLORIDE LEVEL 104.0 MMOL/L (98-107); CREATININE FOR GFR 1.1 MG/DL (0.70-1.30); GLOMERULAR FILTRATION RATE 64.2 (>35); POTASSIUM SERUM 4.6 MMOL/L (3.5-5.1); SODIUM LEVEL 139.0 MMOL/L (136-145)
== END ==
LOC: M WUC 14:40
PROVIDERS: ATTEND Internal Medicine
DX: I10 Essential (primary) hypertension (principal)